=== PATIENT | female | born 1990 | race African-American/Black ===

== ENCOUNTER 2018-08-29 01:13 | Emergency (ER) | payer OTHER ==
[2018-08-29] MEDS: FAMOTIDINE 20 MG TAB PO (01:01)
[2018-08-29] MEDS: predniSONE 20 MG TAB PO (01:01)
[2018-08-29] MEDS: diphenhydrAMINE 50 MG CAP PO (01:02)
== END 2018-08-29 01:40 | disposition home or self-care (01) ==
LOC: M ED 01:13
DX: L50.0 Allergic urticaria (principal); K21.9 Gastro-esophageal reflux disease without esophagitis
CPT/HCPCS: 99282

== ENCOUNTER → 2020-10-23 | Outpatient (CLI) | payer SELFPAY ==
[~2020-10-23] MED LIST: PRED20TA PO
== END ==
LOC: M LABSMTC 13:51
PROVIDERS: ATTEND Pediatrics
DX: Z20.828 Contact with and (suspected) exposure to other viral communicable diseases (principal)